=== PATIENT | male | born 1955 | race Caucasian/White ===

== ENCOUNTER → 2024-10-07 08:01 | Outpatient (REF) | payer MEDICARE, SELFPAY | LOC: DHCBC/DCA 08:01 | PROVIDERS: ATTENDING PHYSICIAN Internal Medicine Cardiovascular Disease; FAMILY PHYSICIAN Family Medicine | DX: I25.10 Atherosclerotic heart disease of native coronary artery without angina pectoris (principal); E78.00 Pure hypercholesterolemia, unspecified; I10 Essential (primary) hypertension | CPT/HCPCS: 78452; 93017; A9500 ==